=== PATIENT | male | born 1950 | race African-American/Black ===

== ENCOUNTER 2018-01-21 14:24 | Emergency (ER) | payer OTHER ==
[~2018-01-21] VITALS: Ht 170.2 cm; Wt 61.2 kg
[~2018-01-21 14:24] MED LIST: ANUSOL-HC21 GM RC; ANUSOL-HC30 GM RC; HYDROCODON-ACE1 EACH PO; IBUPROFEN 800800 M1 PO; KEFLEX500 M1 PO; NAPROSYN250 MG PO; NOHOMEMEDICATIONS; NORCO 5-325 TA1 EACH PO; PROCTOFOAM-HC 110 GM RC; SLEEPING MED; SULFACETAMIDE 115 ML OP
[2018-01-21 16:24] VITALS: BP 161/116
== END 2018-01-21 16:25 | disposition home or self-care (01) ==
LOC: ER 14:24
DX: S70.02XA Contusion of left hip, initial encounter (principal); F17.210 Nicotine dependence, cigarettes, uncomplicated; W01.0XXA Fall on same level from slipping, tripping and stumbling without subsequent striking against object, initial encounter; Y93.89 Activity, other specified; Y92.89 Other specified places as the place of occurrence of the external cause; Y99.8 Other external cause status

== ENCOUNTER 2018-10-29 16:25 | Emergency (ER) | payer OTHER ==
[~2018-10-29] VITALS: Ht 170.2 cm; Wt 59.0 kg
[2018-10-29] MEDS ORDERED: WATER PILL (17:38)
[2018-10-29] MEDS ORDERED: PRADAXA75 MG PO (17:38)
[2018-10-29] MEDS ORDERED: BP MED (17:38)
[2018-10-29] MEDS ORDERED: TESSALON PERLE100 MG PO (17:40)
[2018-10-29] MEDS ORDERED: ZPAK PO (17:40)
[2018-10-29 17:42] VITALS: BP 114/65
== END 2018-10-29 19:31 | disposition home or self-care (01) ==
LOC: ER 16:25
DX: J18.9 Pneumonia, unspecified organism (principal); J02.9 Acute pharyngitis, unspecified; F17.210 Nicotine dependence, cigarettes, uncomplicated

== ENCOUNTER 2019-02-05 17:00 | Emergency (ER) | payer OTHER ==
[~2019-02-05] VITALS: Ht 170.2 cm; Wt 54.4 kg
[~2019-02-05 17:00] MED LIST changes: +BP MED; +PRADAXA75 MG PO; +TESSALON PERLE100 MG PO; +WATER PILL; +ZPAK PO
--- NOTE | 2019-02-05 17:30 | EKG ---
[place] [address] [place] [address] ELECTROCARDIOGRAM REPORT Name: DIONTE GARCIA Room #: [facility] M.R.#: [id number] ������������������ Admission: ������������������ Attend Phys: Discharge: ������������������ Date of : 54 Report #: [id number] ����������������������������������������������������������������� [id number] THIS REPORT FOR: //name// [facility] ED Test Date: 2019-02-05 Test Time: 17:14:08 Pat Name: DIONTE GARCIA Department: Room: Gender: M Wood Turner: kf : 1950 Requested By: Ashu Thompson Order Number: [id number] MD: Nahun Bhardwaj Measurements Intervals [place] Rate: 83 P: 74 MT: 137 QRS: 39 QRSD: 97 T: 64 QT: 340 QTc: 400 Interpretive Statements Sinus rhythm Atrial premature complexes Probable left atrial enlargement LVH with secondary repolarization abnormality Compared to ECG 09/19/2014 16:03:32 Atrial premature complex(es) now present nonspecific changes in the ST and T-wave segments Electronically Signed On 02-05-2019 17:29:58 CDT by Nahun Bhardwaj [email or web address] ��������������������������������������������� <ELECTRONICALLY SIGNED> ���������������������������������������� By: Nahun Bhardwaj MD, [facility] ��������������������������������������������� 02/05/19 1729 1714 1714 Nahun Bhardwaj MD, [facility] /EPI
[2019-02-05 18:13] LABS: BASOPHILS 0.9 % (0.0-2.0); EOSINOPHILS 3.2 % (0.0-3.0); HEMATOCRIT 36.6 % (42.0-52.0); HEMOGLOBIN 12.6 gm/dL (14.0-18.0); LYMPHOCYTES 17.9 % (24.0-44.0); MCH 31.7 pg (26.0-34.0); MCHC 34.5 g/dL (28.0-37.0); MCV 91.9 fL (80.0-100.0); MONOCYTES 5.5 % (1.0-8.0); PLATELET COUNT 192 thou/uL (150-400); POLYS 72.5 % (36.0-66.0); RBC 3.98 mil/uL (4.50-6.00); RDW 13.6 % (10.5-14.5); WBC 8.3 thou/uL (4.0-11.0)
[2019-02-05 18:20] LABS: ANION GAP 3 mmol/L (7-16); BUN 16 mg/dL (7-18); CALCIUM 9.2 mg/dL (8.5-10.1); CHLORIDE 105 mmol/L (98-107); CO2 31 mmol/L (21-32); CREATININE 1.1 mg/dL (0.7-1.3); GLUCOSE 92 mg/dL (74-106); POTASSIUM 4.1 mmol/L (3.5-5.1); SODIUM 139 mmol/L (136-145)
[2019-02-05 18:29] LABS: ALBUMIN 3.3 g/dL (3.4-5.0); MAGNESIUM 1.9 mg/dL (1.8-2.4); SGOT 10 U/L (15-37); SGPT 14 U/L (30-65); TOTAL BILIRUBIN 0.2 mg/dL (<0.1-1.0); TOTAL PROTEIN 7.2 g/dL (6.4-8.2); TROPONIN-I <0.06 ng/mL (<0.06)
[2019-02-05 18:30] LABS: APTT 29.9 Seconds (24.5-32.8); PROTIME 10.6 Seconds (9.3-11.4)
[2019-02-05] MEDS ORDERED: CEPACOL SORE T1 EAC7 PO (19:33)
[2019-02-05 19:49] VITALS: BP 128/73
== END 2019-02-05 19:50 | disposition home or self-care (01) ==
LOC: ER 17:00
PROVIDERS: Emergency Medicine
DX: R07.0 Pain in throat (principal); R13.10 Dysphagia, unspecified; R05 Cough; R63.4 Abnormal weight loss; F17.210 Nicotine dependence, cigarettes, uncomplicated; Z68.1 Body mass index [BMI] 19.9 or less, adult